=== PATIENT | male | born 1965 | race Caucasian/White ===

== ENCOUNTER 2020-05-02 08:45 | Outpatient (CLI) | payer MEDICAID, SELFPAY | END 2020-05-02 23:59 | disposition home or self-care (01) | LOC: MLB 08:45 → EDSTATUS 05-10 07:30 | PROVIDERS: ATTEND Internal Medicine Gastroenterology | DX: Z01.812 Encounter for preprocedural laboratory examination (principal); Z20.828 Contact with and (suspected) exposure to other viral communicable diseases | CPT/HCPCS: U0003-CS ==

== ENCOUNTER 2020-05-31 05:46 | Day surgery (SDC) | payer MEDICAID, SELFPAY ==
[~2020-05-31] VITALS: Ht 170.2 cm; Wt 87.1 kg
[2020-05-31] MEDS ORDERED: LIDOCAINE 2% 100 MG/5 ML UJET TP ONE (07:28)
[2020-05-31] MEDS ORDERED: fentaNYL citrate 0.05 MG/ML VIAL ONE (07:28)
[2020-05-31] MEDS ORDERED: fentaNYL citrate 0.05 MG/ML VIAL IVP ONE (09:40)
== END 2020-05-31 09:05 | disposition home or self-care (01) ==
LOC: MDS 05:46 → MMU 05:47 → MDS 09:05
PROVIDERS: ATTEND Internal Medicine Gastroenterology
DX: K62.5 Hemorrhage of anus and rectum (principal); D12.3 Benign neoplasm of transverse colon; I10 Essential (primary) hypertension; E11.9 Type 2 diabetes mellitus without complications; Z80.0 Family history of malignant neoplasm of digestive organs; R19.5 Other fecal abnormalities; Z87.891 Personal history of nicotine dependence; Z98.890 Other specified postprocedural states; Z79.899 Other long term (current) drug therapy; Z79.84 Long term (current) use of oral hypoglycemic drugs; Z20.828 Contact with and (suspected) exposure to other viral communicable diseases
CPT/HCPCS: 45385; 82948; J3010; U0003